=== PATIENT | male | born 1960 | race African-American/Black ===

== ENCOUNTER → 2020-12-13 | Day surgery (SDC) | payer OTHER ==
[~2020-12-13] VITALS: Ht 182.9 cm; Wt 11.8 kg
[2020-12-13 08:26] VITALS: BP 167/92
[2020-12-13 14:53] VITALS: BP 155/85
== END | disposition home or self-care (01) ==
LOC: DS 08:05
PROVIDERS: ATTEND Internal Medicine Gastroenterology
DX: R19.5 Other fecal abnormalities (principal); D12.2 Benign neoplasm of ascending colon; D12.4 Benign neoplasm of descending colon; K57.30 Diverticulosis of large intestine without perforation or abscess without bleeding; K64.8 Other hemorrhoids
CPT/HCPCS: 45378; J1200; J1610; J2250; J2310; J3010; J3490